=== PATIENT | male | born 1960 | race Hispanic/Latino ===

== ENCOUNTER 2018-06-10 23:01 | Observation (INO) | payer MEDICARE, OTHER ==
[~2018-06-10] VITALS: Ht 172.7 cm; Wt 119.1 kg
[2018-06-10 23:20] LABS: HEMATOCRIT 37.1 % (42-54); LYMPHOCYTES % (AUTO) 8.4 % (21.0-51.0); MEAN CORPUSCULAR HEMOGLOBIN 26.6 pg (27.0-33.0); MEAN CORPUSCULAR HGB CONC 32.8 g/dL (32.0-36.0); MONOCYTES % (AUTO) 5.3 % (3.0-13.0); NEUTROPHILS % (AUTO) 78.3 % (40.0-77.0); PLATELET COUNT (AUTO) 237 K/uL (130-400); RED BLOOD CELL COUNT(AUTO) 4.58 MIL/uL (4.50-6.20); RED CELL DISTRIBUTION WIDTH 16.4 % (11.0-15.5); WHITE BLOOD COUNT (AUTO) 8.8 K/uL (4.8-10.8)
[2018-06-10 23:32] LABS: CREATININE 4.8 mg/dL (0.5-1.5); POTASSIUM 4.8 mmol/L (3.5-5.1)
[2018-06-10 23:36] LABS: ALBUMIN 3.1 g/dL (3.5-5.0); BILIRUBIN,TOTAL 0.2 mg/dL (0.2-1.0); TOTAL PROTEIN, SERUM 7.6 g/dL (6.0-8.3)
[2018-06-11] MEDS ORDERED: ONDANSETRON HCL 4 MG/2 ML VIAL ONE (00:18)
[2018-06-11] MEDS ORDERED: NITROGLYCERIN 0.4 MG SL TAB SL ONE (00:18)
[2018-06-11] MEDS ORDERED: ASPIRIN 325 MG TABLET ONE (00:18)
[2018-06-11] MEDS ORDERED: MORPHINE SULFATE 4 MG/1ML SYG ONE (00:19)
[2018-06-11] MEDS ORDERED: MORPHINE SULFATE 4 MG/1ML SYG IV PRN (02:00)
[2018-06-11] MEDS ORDERED: ACETAMINOPHEN 325 MG TAB PO PRN (02:00)
[2018-06-11] MEDS ORDERED: ONDANSETRON HCL 4 MG/2 ML VIAL IV PRN (02:00)
[2018-06-11 03:00] VITALS: BP 166/93
[2018-06-11] MEDS ORDERED: ATOR10TA69 PO (04:51)
[2018-06-11] MEDS ORDERED: MONT10TA24 PO (04:51)
[2018-06-11] MEDS ORDERED: TRAM50TA4 PO (04:51)
[2018-06-11] MEDS ORDERED: NITR0.4T50 SL (04:51)
[2018-06-11] MEDS ORDERED: GLIM4TAB3 PO (04:51)
[2018-06-11] MEDS ORDERED: METO-391 PO (04:51)
[2018-06-11] MEDS ORDERED: LEVO150T11 PO (04:51)
[2018-06-11] MEDS ORDERED: FURO40TA5 PO (04:51)
[2018-06-11] MEDS ORDERED: BENZ-51 PO (04:51)
[2018-06-11] MEDS ORDERED: ISOS60TA4 PO (04:51)
[2018-06-11] MEDS ORDERED: CYCL5TAB PO (04:51)
[2018-06-11] MEDS ORDERED: CLOP75TA32 PO (04:51)
[2018-06-11] MEDS ORDERED: SENN1TAB6 PO (04:53)
[2018-06-11 07:00] VITALS: BP 127/73
[2018-06-11] MEDS ORDERED: INSULIN HUMULIN R 100 UNIT/ML 3ML SQ SCH (07:30)
[2018-06-11] MEDS ORDERED: NITROGLYCERIN 0.2 MG/HR PATCH TD SCH (09:00)
[2018-06-11] MEDS ORDERED: FUROSEMIDE 10 MG/ML 2ML VIAL IV SCH (09:00)
[2018-06-11] MEDS ORDERED: FAMOTIDINE/PF 20 MG/2 ML VIAL IV SCH (09:00)
[2018-06-11] MEDS ORDERED: ENOXAPARIN SODIUM 40 MG/0.4 ML SYRINGE SQ SCH (09:00)
[2018-06-11] MEDS ORDERED: METOPROLOL TARTRATE 25 MG TAB PO SCH (09:00)
[2018-06-11] MEDS ORDERED: ASPIRIN 325 MG TABLET PO SCH (09:00)
[2018-06-11] MEDS ORDERED: ATORVASTATIN CALCIUM 40 MG TABLET PO SCH (09:00)
[2018-06-11 11:00] VITALS: BP 150/84
[2018-06-11 11:53] VITALS: BP 150/84
== END 2018-06-11 16:10 | disposition home or self-care (01) ==
LOC: EDH 23:01 → EDHIP 06-11 01:40 → 2DH 06-11 02:54
PROVIDERS: ADMIT Internal Medicine; ATTEND Internal Medicine
DX: I25.110 Atherosclerotic heart disease of native coronary artery with unstable angina pectoris (principal); E11.65 Type 2 diabetes mellitus with hyperglycemia; E11.22 Type 2 diabetes mellitus with diabetic chronic kidney disease; I12.9 Hypertensive chronic kidney disease with stage 1 through stage 4 chronic kidney disease, or unspecified chronic kidney disease; N18.9 Chronic kidney disease, unspecified; C18.9 Malignant neoplasm of colon, unspecified; E03.9 Hypothyroidism, unspecified; E66.9 Obesity, unspecified; E78.5 Hyperlipidemia, unspecified; J45.909 Unspecified asthma, uncomplicated; I45.4 Nonspecific intraventricular block; Z85.038 Personal history of other malignant neoplasm of large intestine; Z92.21 Personal history of antineoplastic chemotherapy; Z95.1 Presence of aortocoronary bypass graft; Z95.5 Presence of coronary angioplasty implant and graft; Z79.4 Long term (current) use of insulin
CPT/HCPCS: 36415; 71045; 80053; 82948 ×4; 84484 ×3; 85025; 93005 ×2; 93306; 96372; 96374; 96375; 99291; G0378 ×14; J1650; J1940; J2270; J2405; J3490

== ENCOUNTER 2018-10-22 05:45 | Day surgery (SDC) | payer MEDICARE ==
[2018-10-18 12:30] VITALS: BP 144/79
[2018-10-18 12:46] LABS: BASOPHILS % (AUTO) 1.3 % (0.0-5.0); EOSINOPHILS % (AUTO) 4.2 % (0.0-8.0); HEMATOCRIT 35.6 % (42-54); LYMPHOCYTES % (AUTO) 6.8 % (21.0-51.0); MEAN CORPUSCULAR HEMOGLOBIN 25.2 pg (27.0-33.0); MEAN CORPUSCULAR HGB CONC 31.9 g/dL (32.0-36.0); MEAN CORPUSCULAR VOLUME 78.9 fL (79-99); MONOCYTES % (AUTO) 6.5 % (3.0-13.0); NEUTROPHILS % (AUTO) 81.2 % (40.0-77.0); PLATELET COUNT (AUTO) 294 K/uL (130-400); RED BLOOD CELL COUNT(AUTO) 4.52 MIL/uL (4.50-6.20); RED CELL DISTRIBUTION WIDTH 16.3 % (11.0-15.5); WHITE BLOOD COUNT (AUTO) 8.6 K/uL (4.8-10.8)
[2018-10-18 12:51] LABS: APPEARANCE,URINE Clear (CLEAR); BILIRUBIN,URINE Negative (NEGATIVE); COLOR,URINE Yellow (YELLOW); GLUCOSE, URINE (UA) 250 mg/dL (NEGATIVE); KETONES,URINE Negative (NEGATIVE); LEUKOCYTE ESTERASE ,URINE Negative (NEGATIVE); NITRATE,URINE Negative (NEGATIVE); OCCULT BLOOD,URINE Small (NEGATIVE); PROTEIN,URINE >=1000 mg/dL (NEGATIVE); UROBILINOGEN,URINE 0.2 mg/dL (0.2-1.0)
[2018-10-18 12:52] LABS: CREATININE 5.9 mg/dL (0.5-1.5); POTASSIUM 4.8 mmol/L (3.5-5.1)
[2018-10-18 12:53] LABS: INR 1.09 (0.85-1.15); PARTIAL THROMBOPLASTIN TIME 31.4 SEC (26.3-35.5); PROTHROMBIN TIME 11.4 SEC (9.6-11.6)
[2018-10-18 13:45] LABS: BACTERIA,URINE Few /HPF (None Seen)
[2018-10-18 13:46] LABS: RBC,URINE 0-1 /HPF (0-1); SQUAMOUS EPITHELIAL CELL,UR 0-2 /HPF (0-2); WBC,URINE 0-1 /HPF (0-1)
--- NOTE | 2018-10-21 14:52 | NUR ---
ABNORMAL LABS REPORTED TO DANIELLE GARCIAS, NO NEW ORDERS RECEIVED.
[~2018-10-22] VITALS: Ht 172.7 cm; Wt 102.5 kg
[2018-10-22] VITALS (10 sets, daily range): BP systolic 141–166; BP diastolic 74–94
[~2018-10-22 05:45] MED LIST: ACET1TAB25 PO; ALBUTEROL SULFATE NEB; ASPI-1181 PO; ATOR10TA69 PO; CLOP75TA32 PO; CYCL10TA7 PO; FLUTICASONE PROPION NASAL; FURO40TA5 PO; GENTAMICIN 80 MG/NS 100 ML PB 100 ML IV SCH; INSLAN SQ; ISOS60TA4 PO; LEVO150T11 PO; METO-391 PO; MOME13HF IH; MONT10TA24 PO; NITR0.4T50 SL; OVAR IH; SENN1TAB6 PO; SODIUM CHLORIDE 0.9% 500ML 500 ML IV SCH; TRAM50TA4 PO
[2018-10-22] MEDS ORDERED: SODIUM CHLORIDE 0.9% 1000ML 1,000 ML IV ONE (06:43)
[2018-10-22] MEDS ORDERED: FURO40TA5 PO (07:14)
[2018-10-22] MEDS ORDERED: SODIUM BICARB 50MEQ 50ML VIAL ONE (07:18)
[2018-10-22] MEDS ORDERED: HEPARIN SODIUM 1000UNIT/ML 10ML VIAL ONE (07:18)
[2018-10-22] MEDS ORDERED: IOHEXOL 350 MG/ML 100ML INFUS..BTL IV ONE (07:18)
[2018-10-22] MEDS ORDERED: IOHEXOL-350 50ML VIAL IV ONE (07:18)
[2018-10-22] MEDS ORDERED: NITROGLYCERIN 5 MG/ML 10 ML VIAL IV ONE (07:18)
[2018-10-22] MEDS ORDERED: LIDOCAINE HCL 2% 20ML ONE (07:19)
--- NOTE | 2018-10-22 07:25 | NUR ---
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 PT STABLE.
[2018-10-22] MEDS ORDERED: NITROGLYCERIN 4.1 GM SPRAY TL ONE (07:52)
[2018-10-22] MEDS ORDERED: LABETALOL HCL 5 MG/ML 20ML VIAL IV ONE (08:01)
[2018-10-22] MEDS ORDERED: HYDRALAZINE HCL 20 MG/ML VIAL IV PRN (08:45)
[2018-10-22] MEDS ORDERED: ACETAMINOPHEN-CODEINE 300/30MG TAB PO PRN ×2 (08:45)
--- NOTE | 2018-10-22 10:45 | NUR ---
DIET PT TOLERATING DIET WELL, ASSISTING IN FEEDING PT.
[2018-10-22] MEDS ORDERED: INSULIN HUMULIN R 100 UNIT/ML 3ML SQ SCH (11:30)
--- NOTE | 2018-10-22 12:50 | NUR ---
DISCHARGE PT DISCHARGED VIA WHEELCHAIR WITH . PT STABLE. NO COMPLAINTS MADE. CATH SITE TO RIGHT GROIN REMAINS SOFT, DRESSING DRY AND INTACT, NO OOZING NO HEMATOMA NOTED. DISCHARGE INSTRUCTIONS GIVEN TO AND PT. DEMONSTRATED ON HOW TO MONITOR CATH SITE FOR BLEEDING/HEMATOMA, VERBALIZED UNDERSTANDING.
== END 2018-10-22 12:50 | disposition home or self-care (01) ==
LOC: DAH 05:45
PROVIDERS: ATTEND Internal Medicine Cardiovascular Disease
DX: I25.790 Atherosclerosis of other coronary artery bypass graft(s) with unstable angina pectoris (principal); Z95.5 Presence of coronary angioplasty implant and graft; I25.5 Ischemic cardiomyopathy; I21.3 ST elevation (STEMI) myocardial infarction of unspecified site; Z98.890 Other specified postprocedural states; Z85.028 Personal history of other malignant neoplasm of stomach; D64.9 Anemia, unspecified; J45.909 Unspecified asthma, uncomplicated; I50.42 Chronic combined systolic (congestive) and diastolic (congestive) heart failure; N18.9 Chronic kidney disease, unspecified
CPT/HCPCS: 36415; 71045; 80048; 81001; 82948 ×2; 85025; 85610; 85730; 93005; 93459; C1760; C1769; C1894; J1580; J1644; J1815; J3490 ×4; J7030; Q9965; Q9967 ×2

== ENCOUNTER 2018-11-24 10:32 | Inpatient (IN) | payer MEDICARE | END 2018-11-30 18:55 | disposition home or self-care (01) | LOC: 2DH 10:32 | PROC: 05HM33Z Insertion of Infusion Device into Right Internal Jugular Vein, Percutaneous Approach (ICD-10-PCS; principal; ~2018-11-24) | PROC: B5131ZA Fluoroscopy of Right Jugular Veins using Low Osmolar Contrast, Guidance (ICD-10-PCS; ~2018-11-24) | DX: N18.6 End stage renal disease (principal); I21.4 Non-ST elevation (NSTEMI) myocardial infarction; I12.0 Hypertensive chronic kidney disease with stage 5 chronic kidney disease or end stage renal disease; E11.21 Type 2 diabetes mellitus with diabetic nephropathy; E11.22 Type 2 diabetes mellitus with diabetic chronic kidney disease; E11.51 Type 2 diabetes mellitus with diabetic peripheral angiopathy without gangrene; I25.5 Ischemic cardiomyopathy; M10.9 Gout, unspecified ==

== ENCOUNTER 2019-01-06 19:37 | Inpatient (IN) | payer MEDICARE | END 2019-01-10 17:15 | disposition home or self-care (01) | LOC: EDH 19:37 → 3DH 01-07 11:17 → EDHIP 22:50 | DX: A41.9 Sepsis, unspecified organism (principal); N18.6 End stage renal disease; L03.90 Cellulitis, unspecified; R50.9 Fever, unspecified; Z99.2 Dependence on renal dialysis; E11.22 Type 2 diabetes mellitus with diabetic chronic kidney disease; D64.9 Anemia, unspecified ==

== ENCOUNTER 2019-07-29 08:45 | Day surgery (SDC) | payer MEDICARE ==
[2019-07-24 12:14] LABS: BASOPHILS % (AUTO) 1.3 % (0.0-5.0); EOSINOPHILS % (AUTO) 8.1 % (0.0-8.0); HEMATOCRIT 39.3 % (42-54); LYMPHOCYTES % (AUTO) 13.3 % (21.0-51.0); MEAN CORPUSCULAR HEMOGLOBIN 28.3 pg (27.0-33.0); MEAN CORPUSCULAR VOLUME 91.2 fL (79-99); MONOCYTES % (AUTO) 7.2 % (3.0-13.0); NEUTROPHILS % (AUTO) 69.7 % (40.0-77.0); PLATELET COUNT (AUTO) 176 K/uL (130-400); RED BLOOD CELL COUNT(AUTO) 4.31 MIL/uL (4.50-6.20); RED CELL DISTRIBUTION WIDTH 16.2 % (11.0-15.5); WHITE BLOOD COUNT (AUTO) 5.6 K/uL (4.8-10.8)
[2019-07-24 12:21] LABS: APPEARANCE,URINE Cloudy (CLEAR); BILIRUBIN,URINE Negative (NEGATIVE); COLOR,URINE Dark Yellow (YELLOW); GLUCOSE, URINE (UA) Negative (NEGATIVE); KETONES,URINE Trace mg/dL (NEGATIVE); LEUKOCYTE ESTERASE ,URINE Small (NEGATIVE); NITRATE,URINE Negative (NEGATIVE); OCCULT BLOOD,URINE Trace (NEGATIVE); PROTEIN,URINE 300 mg/dL (NEGATIVE)
[2019-07-24 12:29] LABS: CREATININE 7.1 mg/dL (0.5-1.5)
[2019-07-24 12:30] VITALS: BP 136/63
[2019-07-24 12:30] LABS: AMORPHOUS SEDIMENT,UR Few /LPF (None Seen); BACTERIA,URINE Few /HPF (None Seen); RBC,URINE 0-1 /HPF (0-1); SQUAMOUS EPITHELIAL CELL,UR Rare /HPF (0-2)
[2019-07-24 12:32] LABS: INR 0.99 (0.85-1.15); PARTIAL THROMBOPLASTIN TIME 29.1 SEC (26.3-35.5); PROTHROMBIN TIME 10.4 SEC (9.6-11.6)
[2019-07-29] VITALS (11 sets, daily range): BP systolic 108–152; BP diastolic 61–72
[~2019-07-29] VITALS: Ht 172.7 cm; Wt 100.7 kg
[~2019-07-29 08:45] MED LIST changes: +ACET1TAB12 PO; -ACET1TAB25 PO; +AEC81 PO; +ALBUTEROL 0.083% NEB; -ALBUTEROL SULFATE NEB; -ASPI-1181 PO; -ATOR10TA69 PO; +ATOR40TA71 PO; +BUDE10.2 IH; +CALC667T8 PO; +CYAN250 SL; +CYCL10 PO; -CYCL10TA7 PO; -FLUTICASONE PROPION NASAL; +GABA-531 PO; -GENTAMICIN 80 MG/NS 100 ML PB 100 ML IV SCH; +GLIM4TAB36 PO; +HC2530O TP; +KELP PO; -METO-391 PO; -MOME13HF IH; -MONT10TA24 PO; +MONT10TA26 PO; +OMEG-148 PO; +ONDA-104 PO; -OVAR IH; +PLEC3TAB PO; +SALBUTAMOL; -SENN1TAB6 PO; +TRIA15CR48 TP
[2019-07-29] MEDS ORDERED: DEXTROSE 50%-WATER 50 ML DISP.SYRIN IV ONE ×2 (10:49→13:23)
[2019-07-29] MEDS ORDERED: IOHEXOL-350 50ML VIAL IV ONE (13:13)
[2019-07-29] MEDS ORDERED: IOHEXOL 350 MG/ML 100ML INFUS..BTL IV ONE (13:13)
[2019-07-29] MEDS ORDERED: MEPERIDINE-PF 25 MG/ML SYG ONE (13:14)
[2019-07-29] MEDS ORDERED: MIDAZOLAM HCL 1 MG/ML 2ML VIAL ONE (13:14)
[2019-07-29] MEDS ORDERED: LIDOCAINE HCL 2% 20ML ONE (13:14)
[2019-07-29] MEDS ORDERED: SODIUM BICARB 50MEQ 50ML VIAL ONE (13:20)
[2019-07-29] MEDS ORDERED: NITROGLYCERIN 1 MG/VIAL VIAL IV ONE (13:20)
[2019-07-29] MEDS ORDERED: HEPARIN SODIUM 1000UNIT/ML 10ML VIAL ONE (13:20)
--- NOTE | 2019-07-29 13:20 | NUR ---
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 Pt's blood sugar checked prior to taking pt to cheesemaking laborer, noted to be 47. Pt given remainder of 25 mls (12.5 grams) of 50% Dextrose. labor gang supervisor stated they would recheck the pt's blood sugar in cheesemaking laborer. Report given, care rendered over.
[2019-07-29] MEDS ORDERED: GLUCAGON 1MG KIT 1 MG ML IM PRN (14:45)
[2019-07-29] MEDS ORDERED: DEXTROSE 50%-WATER 50 ML DISP.SYRIN IV PRN (14:45)
[2019-07-29] MEDS ORDERED: INSULIN HUMULIN R 100 UNIT/ML 3ML SQ SCH (16:30)
--- NOTE | 2019-07-29 19:10 | NUR ---
Pt discharged home, tolerating solids/fluids well, ambulating well, voided just prior to discharge. Pt denies any severe nausea, dizziness, or pain. Dressing to right groin remains dry, clean and intact, site remains soft and non-tender. Pt and spouse intructed in routine and emergency care of cath site. Pt and spouse report no further questions at this time.
[2019-07-29] MEDS ORDERED: SODIUM CHLORIDE 0.9% 1000ML 1,000 ML IV ONE (19:27)
== END 2019-07-29 19:10 | disposition home or self-care (01) ==
LOC: DAH 08:45
PROVIDERS: ATTEND Internal Medicine Cardiovascular Disease
DX: I25.119 Atherosclerotic heart disease of native coronary artery with unspecified angina pectoris (principal); I25.5 Ischemic cardiomyopathy; I44.7 Left bundle-branch block, unspecified; I12.9 Hypertensive chronic kidney disease with stage 1 through stage 4 chronic kidney disease, or unspecified chronic kidney disease; E11.22 Type 2 diabetes mellitus with diabetic chronic kidney disease; N18.9 Chronic kidney disease, unspecified; E78.5 Hyperlipidemia, unspecified; Z95.1 Presence of aortocoronary bypass graft; Z95.5 Presence of coronary angioplasty implant and graft
CPT/HCPCS: 36415; 71045; 80048; 81001; 82948 ×7; 85025; 85610; 85730; 93005; 93459; A4215; A4216; A4221; A4222; A4223 ×3; A4606; A4663; C1760; C1894; J1644; J2175; J2250; J3490 ×3; J7030; J7070 ×2; Q9965; Q9967 ×2; 99156; 99157

== ENCOUNTER 2021-01-05 06:30 | Day surgery (SDC) | payer OTHER ==
[2021-01-05] VITALS (9 sets, daily range): BP systolic 116–134; BP diastolic 45–65
[~2021-01-05] VITALS: Ht 172.7 cm; Wt 99.8 kg
[~2021-01-05 06:30] MED LIST changes: -CYAN250 SL; +CYAN250T3 SL; -ISOS60TA4 PO; +ISOS60TA77 PO; -MONT10TA26 PO; +MONT10TA32 PO; -PLEC3TAB PO; +PLEC3TAB2 PO; -SODIUM CHLORIDE 0.9% 500ML 500 ML IV SCH
[2021-01-05 08:58] LABS: INR 1.05 (0.85-1.15); PROTHROMBIN TIME 11.4 SEC (9.6-11.6)
[2021-01-05 09:00] LABS: PARTIAL THROMBOPLASTIN TIME 32.9 SEC (26.3-35.5)
[2021-01-05] MEDS ORDERED: 0.9%NACL 1000ML 1,000 ML IV ONE (09:19)
[2021-01-05] MEDS ORDERED: CLOPIDOGREL 75MG TAB ONE (10:14)
[2021-01-05] MEDS ORDERED: ASPIRIN 81MG CHEW TAB ONE (10:14)
[2021-01-05] MEDS ORDERED: CARV3.1262 PO (10:22)
[2021-01-05] MEDS ORDERED: heparin IV (10:22)
[2021-01-05] MEDS ORDERED: FLUT1AER IH (10:22)
[2021-01-05] MEDS ORDERED: PANT40TA54 PO (10:22)
[2021-01-05] MEDS ORDERED: VANC1.2526 IV (10:22)
[2021-01-05] MEDS ORDERED: lispro SQ (10:22)
[2021-01-05] MEDS ORDERED: NITROGLYCERIN 2 MG VIAL IV ONE (10:23)
[2021-01-05] MEDS ORDERED: BIVALIRUDIN 250 MG/VIAL IV ONE (10:23)
[2021-01-05] MEDS ORDERED: IOHEXOL-350 50ML VIAL IV ONE (10:23)
[2021-01-05] MEDS ORDERED: IOHEXOL 350 MG/ML 100ML INFUS..BTL IV ONE (10:23)
[2021-01-05] MEDS ORDERED: MIDAZOLAM HCL 1 MG/ML 2ML VIAL ONE (10:23)
[2021-01-05] MEDS ORDERED: FENTANYL CITRATE PF 50 MCG/1 ML 2ML VIAL ONE (10:24)
[2021-01-05] MEDS ORDERED: LIDOCAINE HCL 400MG/20ML VIAL ONE (10:24)
[2021-01-05] MEDS ORDERED: ISOSORBIDE MONO 60MG SR TAB PO SCH (10:30)
[2021-01-05] MEDS ORDERED: CLOPIDOGREL 300MG TAB PO SCH (10:30)
[2021-01-05] MEDS ORDERED: CARVEDILOL 3.125 MG TABLET PO SCH (10:30)
[2021-01-05] MEDS ORDERED: ASPIRIN 81MG CHEW TAB PO SCH (10:30)
[2021-01-05] MEDS ORDERED: CLOPIDOGREL 75MG TAB PO SCH ×2 (11:00)
[2021-01-05] MEDS ORDERED: IOHEXOL-350 75 ML VIAL IV ONE (11:26)
[2021-01-05] MEDS ORDERED: LABETALOL 20MG SYG IV ONE (11:36)
[2021-01-05] MEDS ORDERED: NITROGLYCERIN 0.4 MG SL TAB SL PRN (12:00)
[2021-01-05] MEDS ORDERED: GLUCAGON 1MG KIT 1 MG ML IM PRN (12:00)
[2021-01-05] MEDS ORDERED: DEXTROSE 50%-WATER 50 ML DISP.SYRIN IV PRN (12:00)
[2021-01-05] MEDS ORDERED: INSULIN HUMULIN R 100 UNIT/ML 3ML SQ SCH (16:30)
== END 2021-01-05 15:30 | disposition home or self-care (01) ==
LOC: UNDOADMIN 06:30 → DAHIP 06:30 → DAH 06:30 → EDSTATUS 14:27 → DAH 15:30
PROVIDERS: ATTEND Internal Medicine Cardiovascular Disease
DX: I21.4 Non-ST elevation (NSTEMI) myocardial infarction (principal); I25.110 Atherosclerotic heart disease of native coronary artery with unstable angina pectoris; I34.0 Nonrheumatic mitral (valve) insufficiency; I44.7 Left bundle-branch block, unspecified; N18.6 End stage renal disease; Z79.899 Other long term (current) drug therapy; Z98.890 Other specified postprocedural states; Z95.5 Presence of coronary angioplasty implant and graft
CPT/HCPCS: 36415; 82948; 85610; 85730; 87635; 93005; 93459; A4216; A4222; A4223 ×2; A4606; A4663; C1760; C1769; C1894 ×2; J1644; J2250; J3010; J3490 ×2; J7030; Q9965; Q9967 ×2; 99156; 99157; J0583

== ENCOUNTER 2021-09-22 13:20 | Observation (INO) | payer OTHER ==
[~2021-09-22] VITALS: Ht 172.7 cm; Wt 91.6 kg
[~2021-09-22 13:20] MED LIST changes: -ACET1TAB12 PO; -ALBUTEROL 0.083% NEB; -BUDE10.2 IH; +CARV3.1262 PO; -CYAN250T3 SL; -CYCL10 PO; +FLUT1AER IH; -GLIM4TAB36 PO; -HC2530O TP; -INSLAN SQ; -KELP PO; +MONT-39 PO; -MONT10TA32 PO; -OMEG-148 PO; -ONDA-104 PO; +PANT40TA54 PO; -PLEC3TAB2 PO; -SALBUTAMOL; -TRAM50TA4 PO; -TRIA15CR48 TP; +VANC1.2526 IV; +heparin IV; +lispro SQ
[2021-09-22 13:57] LABS: BASOPHILS % (AUTO) 1.1 % (0.0-5.0); EOSINOPHILS % (AUTO) 5.2 % (0.0-8.0); LYMPHOCYTES % (AUTO) 11.2 % (21.0-51.0); MEAN CORPUSCULAR HEMOGLOBIN 29.9 pg (27.0-33.0); MEAN CORPUSCULAR HGB CONC 31.8 g/dL (32.0-36.0); MONOCYTES % (AUTO) 7.5 % (3.0-13.0); NEUTROPHILS % (AUTO) 74.7 % (40.0-77.0); PLATELET COUNT (AUTO) 176 K/uL (130-400); RED BLOOD CELL COUNT(AUTO) 3.51 MIL/uL (4.50-6.20); RED CELL DISTRIBUTION WIDTH 14.5 % (11.0-15.5); WHITE BLOOD COUNT (AUTO) 6.1 K/uL (4.8-10.8)
[2021-09-22 14:05] LABS: CREATININE 6.6 mg/dL (0.5-1.5); POTASSIUM 3.9 mmol/L (3.5-5.1)
[2021-09-22 14:10] LABS: ALBUMIN 3.7 g/dL (3.5-5.0); BILIRUBIN,TOTAL 0.4 mg/dL (0.2-1.0); TOTAL PROTEIN, SERUM 7.9 g/dL (6.0-8.3)
[2021-09-22] MEDS ORDERED: ASPIRIN 81MG CHEW TAB PO ONE (15:30)
[2021-09-22 15:57] LABS: HEMOGLOBIN A1C 5.9 % (4.0-6.0)
[2021-09-22] MEDS: INSULIN HUMULIN R 100 UNIT/ML 3ML SQ SCH ×2 (16:30→20:22)
[2021-09-22 17:14] LABS: CHOLESTEROL 138 mg/dL (<200); HDL CHOLESTEROL 59 mg/dL (29-71); LDL DIRECT 60 mg/dL (0-99); TRIGLYCERIDES 113 mg/dL (30-200)
[2021-09-22] MEDS ORDERED: CLOPIDOGREL 75MG TAB PO ONE (18:00)
[2021-09-22] MEDS ORDERED: TRELEGY IH (18:27)
[2021-09-22] MEDS ORDERED: TRIAMCINOLONE 0.1% TP (18:27)
[2021-09-22] MEDS ORDERED: LISI2.5T13 PO (18:27)
[2021-09-22] MEDS ORDERED: L.AC1CAP6 PO (18:27)
[2021-09-22] MEDS ORDERED: SEMA7TAB2 PO (18:27)
[2021-09-22] MEDS ORDERED: INSLAN SQ (18:27)
[2021-09-22] MEDS ORDERED: OMEG-148 PO (18:27)
[2021-09-22] MEDS ORDERED: ONDA4TAB10 PO (18:27)
[2021-09-22] MEDS ORDERED: CYAN-35 PO (18:27)
[2021-09-22] MEDS ORDERED: CYCL-309 PO (18:27)
[2021-09-22] MEDS ORDERED: HC2530O TP (18:27)
[2021-09-22] MEDS: CALCIUM AC 667MG CAP PO SCH (20:25)
[2021-09-22] MEDS: CARVEDILOL 3.125 MG TABLET PO SCH (20:25)
[2021-09-22] MEDS ORDERED: ATORVASTATIN 40 MG TABLET PO SCH (21:00)
[2021-09-22 22:40] VITALS: BP 125/66
[2021-09-23 04:12] VITALS: BP 129/64
[2021-09-23] MEDS: INSULIN HUMULIN R 100 UNIT/ML 3ML SQ SCH ×2 (06:46→11:30)
[2021-09-23] MEDS: LEVOTHYROXINE 150 MCG TABLET PO SCH ×2 (06:46→08:10)
[2021-09-23 08:01] LABS: BASOPHILS % (AUTO) 1.6 % (0.0-5.0); EOSINOPHILS % (AUTO) 7.5 % (0.0-8.0); HEMATOCRIT 29.9 % (42-54); MEAN CORPUSCULAR HEMOGLOBIN 29.1 pg (27.0-33.0); MEAN CORPUSCULAR HGB CONC 31.8 g/dL (32.0-36.0); MEAN CORPUSCULAR VOLUME 91.4 fL (79-99); MONOCYTES % (AUTO) 8.7 % (3.0-13.0); PLATELET COUNT (AUTO) 161 K/uL (130-400); RED BLOOD CELL COUNT(AUTO) 3.27 MIL/uL (4.50-6.20); RED CELL DISTRIBUTION WIDTH 14.2 % (11.0-15.5); WHITE BLOOD COUNT (AUTO) 5.1 K/uL (4.8-10.8)
[2021-09-23] MEDS: CARVEDILOL 3.125 MG TABLET PO SCH (08:10)
[2021-09-23 08:11] LABS: CREATININE 7.6 mg/dL (0.5-1.5); POTASSIUM 4.4 mmol/L (3.5-5.1)
[2021-09-23] MEDS: CALCIUM AC 667MG CAP PO SCH ×2 (08:11→11:53)
[2021-09-23 08:17] VITALS: BP 143/69
[2021-09-23] MEDS ORDERED: ASPIRIN 81MG CHEW TAB PO SCH (09:00)
[2021-09-23] MEDS ORDERED: MONTELUKAST SODIUM 10 MG TAB PO SCH (09:00)
[2021-09-23] MEDS ORDERED: CYANOCOBALAMIN (VITAMIN B-12) 1,000 MCG TABLET PO SCH (09:00)
[2021-09-23] MEDS ORDERED: LISINOPRIL 2.5 MG TABLET PO SCH (09:00)
[2021-09-23 11:33] VITALS: BP 135/74
[2021-09-23] MEDS ORDERED: RANOLAZINE 500 MG TAB.SR.12H PO SCH (12:00)
== END 2021-09-23 13:15 | disposition home or self-care (01) ==
LOC: EDH 13:20 → EDHIP 15:23 → INTOOBSV 15:23 → 4BH 22:28
PROVIDERS: ADMIT Internal Medicine; ATTEND Internal Medicine
DX: R07.89 Other chest pain (principal); I25.10 Atherosclerotic heart disease of native coronary artery without angina pectoris; I12.0 Hypertensive chronic kidney disease with stage 5 chronic kidney disease or end stage renal disease; N18.6 End stage renal disease; D63.1 Anemia in chronic kidney disease; Z99.2 Dependence on renal dialysis; E11.22 Type 2 diabetes mellitus with diabetic chronic kidney disease; E78.00 Pure hypercholesterolemia, unspecified; E03.9 Hypothyroidism, unspecified; Z85.038 Personal history of other malignant neoplasm of large intestine; Z79.82 Long term (current) use of aspirin; Z79.899 Other long term (current) drug therapy; Z92.21 Personal history of antineoplastic chemotherapy; Z95.1 Presence of aortocoronary bypass graft; Z95.5 Presence of coronary angioplasty implant and graft
CPT/HCPCS: 36415 ×2; 71045; 80048; 80053; 80061; 82948 ×3; 83036; 84443; 84484 ×3; 85025 ×2; 93005; 99285; G0378 ×2; 90935

== ENCOUNTER → 2021-11-04 | Day surgery (SDC) | payer OTHER ==
[2021-11-02 12:59] LABS: BASOPHILS % (AUTO) 0.8 % (0.0-5.0); EOSINOPHILS % (AUTO) 3.5 % (0.0-8.0); HEMATOCRIT 29.7 % (42-54); LYMPHOCYTES % (AUTO) 7.8 % (21.0-51.0); MEAN CORPUSCULAR HEMOGLOBIN 30.8 pg (27.0-33.0); MEAN CORPUSCULAR HGB CONC 32.3 g/dL (32.0-36.0); MEAN CORPUSCULAR VOLUME 95.2 fL (79-99); MONOCYTES % (AUTO) 9.5 % (3.0-13.0); NEUTROPHILS % (AUTO) 77.8 % (40.0-77.0); PLATELET COUNT (AUTO) 206 K/uL (130-400); RED BLOOD CELL COUNT(AUTO) 3.12 MIL/uL (4.50-6.20); RED CELL DISTRIBUTION WIDTH 13.4 % (11.0-15.5); WHITE BLOOD COUNT (AUTO) 6.6 K/uL (4.8-10.8)
[2021-11-02 13:11] LABS: CREATININE 4.6 mg/dL (0.5-1.5); POTASSIUM 4.8 mmol/L (3.5-5.1)
[2021-11-02 13:18] LABS: PROTHROMBIN TIME 10.9 SEC (9.6-11.6)
[2021-11-02 13:19] LABS: PARTIAL THROMBOPLASTIN TIME 29.2 SEC (26.3-35.5)
[~2021-11-04] VITALS: Ht 172.7 cm; Wt 88.2 kg
[~2021-11-04] MED LIST changes: +0.9% NACL 500ML IV.SOLN 500 ML IV SCH; -AEC81 PO; +ALBU1.252 IH; +ALBU8.5H8 IH; +ASCO500T20 PO; +ASPI-1521 PO; +CYAN-35 PO; +CYCL-309 PO; +EPHEDRINE SULFATE 50 MG/ML AMPULE ONE; +FENTANYL CITRATE PF 50 MCG/1 ML 2ML VIAL ONE; -FLUT1AER IH; +FLUT1BLS3 IH; -FURO40TA5 PO; -GABA-531 PO; +INSLAN SQ; -ISOS60TA77 PO; +L.AC1CAP6 PO; -LEVO150T11 PO; +LEVO175C2 PO; +LIDOCAINE PF 100MG/5ML (2%) SYRINGE 5ML ONE; +LISI2.5T13 PO; +MIDAZOLAM HCL 1 MG/ML 2ML VIAL ONE; +OMEG-148 PO; +ONDA4TAB10 PO; -PANT40TA54 PO; +POLY17PO4 PO; +PROPOFOL 10 MG/ML 20ML VIAL IV ONE; +RANO10003 PO; +ROCURONIUM 10MG/1ML SYR 10 MG/ML ML ONE; +SEMA7TAB2 PO; +SUCCINYLCHOLINE 200MG/10ML SYR ONE; -VANC1.2526 IV; +apap/codeine PO; -heparin IV; -lispro SQ
[2021-11-04 09:00] VITALS: BP 133/67
== END | disposition home or self-care (01) ==
LOC: DAH 08:22
PROVIDERS: ATTEND Internal Medicine Cardiovascular Disease
DX: I51.7 Cardiomegaly (principal); I44.7 Left bundle-branch block, unspecified; Z79.01 Long term (current) use of anticoagulants; Z53.8 Procedure and treatment not carried out for other reasons
CPT/HCPCS: 36415; 80048; 82948; 85025; 85610; 85730; 93005; A4215 ×2; A4216; A4221; A4222; A4223 ×3; A4606; A4663; J2001; J2704; J0330; J2250; J3010; J3490

== ENCOUNTER → 2022-04-04 | Outpatient (CLI) | payer OTHER ==
[~2022-04-04] MED LIST changes: -0.9% NACL 500ML IV.SOLN 500 ML IV SCH; -EPHEDRINE SULFATE 50 MG/ML AMPULE ONE; -FENTANYL CITRATE PF 50 MCG/1 ML 2ML VIAL ONE; +IOHEXOL 350 MG/ML 100ML INFUS..BTL IV ONE; -LIDOCAINE PF 100MG/5ML (2%) SYRINGE 5ML ONE; -MIDAZOLAM HCL 1 MG/ML 2ML VIAL ONE; -PROPOFOL 10 MG/ML 20ML VIAL IV ONE; -ROCURONIUM 10MG/1ML SYR 10 MG/ML ML ONE; -SUCCINYLCHOLINE 200MG/10ML SYR ONE
== END | disposition home or self-care (01) ==
LOC: RAH 09:32
PROVIDERS: ATTEND Internal Medicine Cardiovascular Disease
DX: J90 Pleural effusion, not elsewhere classified (principal); I51.7 Cardiomegaly; I73.9 Peripheral vascular disease, unspecified; J47.9 Bronchiectasis, uncomplicated
CPT/HCPCS: 71275; Q9967

== ENCOUNTER 2022-06-30 09:10 | Day surgery (SDC) | payer OTHER ==
[2022-06-28 11:44] LABS: BASOPHILS % (AUTO) 1.4 % (0.0-5.0); HEMATOCRIT 38.2 % (42-54); MEAN CORPUSCULAR HEMOGLOBIN 27.6 pg (27.0-33.0); MEAN CORPUSCULAR HGB CONC 30.6 g/dL (32.0-36.0); MEAN CORPUSCULAR VOLUME 90.1 fL (79-99); MONOCYTES % (AUTO) 6.3 % (3.0-13.0); NEUTROPHILS % (AUTO) 79.9 % (40.0-77.0); PLATELET COUNT (AUTO) 153 K/uL (130-400); RED BLOOD CELL COUNT(AUTO) 4.24 MIL/uL (4.50-6.20); RED CELL DISTRIBUTION WIDTH 15.4 % (11.0-15.5)
[2022-06-28 11:58] LABS: CREATININE 5.2 mg/dL (0.5-1.5); POTASSIUM 3.9 mmol/L (3.5-5.1)
[2022-06-28 12:01] LABS: INR 1.04 (0.85-1.15); PROTHROMBIN TIME 11.3 SEC (9.6-11.6)
[2022-06-28 12:02] LABS: PARTIAL THROMBOPLASTIN TIME 30.8 SEC (26.3-35.5)
[2022-06-29 10:45] VITALS: BP 135/63
[~2022-06-30] VITALS: Ht 172.7 cm; Wt 94.8 kg
[2022-06-30] VITALS (10 sets, daily range): BP systolic 120–142; BP diastolic 45–70
[~2022-06-30 09:10] MED LIST changes: -ASCO500T20 PO; -CARV3.1262 PO; -CYAN-35 PO; -CYCL-309 PO; -IOHEXOL 350 MG/ML 100ML INFUS..BTL IV ONE; -L.AC1CAP6 PO; -LISI2.5T13 PO; -POLY17PO4 PO; -apap/codeine PO
[2022-06-30] MEDS ORDERED: MEPERIDINE-PF 25 MG/ML SYG ONE ×4 (12:47→13:57)
[2022-06-30] MEDS ORDERED: MIDAZOLAM HCL 1 MG/ML 2ML VIAL ONE ×4 (12:48→13:57)
[2022-06-30] MEDS ORDERED: IOHEXOL-350 50ML VIAL IV ONE (12:52)
[2022-06-30] MEDS ORDERED: CEFAZOLIN SODIUM 1 GM VIAL ONE (12:52)
[2022-06-30] MEDS ORDERED: LIDOCAINE HCL 1% MDV 50ML VIAL ONE (12:52)
[2022-06-30] MEDS ORDERED: BUPIVACAINE/PF 0.25% 30ML VIAL IJ ONE (12:52)
[2022-06-30] MEDS ORDERED: THROMBIN-JMI 5000 UNIT/VIAL TP ONE (14:04)
[2022-06-30] MEDS ORDERED: BACITRACIN 1 EACH PACKET TP ONE (14:37)
[2022-06-30] MEDS ORDERED: DEXTROSE 50%-WATER 50 ML DISP.SYRIN IV PRN (15:00)
[2022-06-30] MEDS ORDERED: GLUCAGON 1MG KIT 1 MG ML IM PRN (15:00)
[2022-06-30] MEDS ORDERED: ONDANSETRON 4MG INJ IV PRN (15:00)
[2022-06-30] MEDS ORDERED: ACETAMINOPHEN 325 MG TAB PO PRN ×2 (15:00)
[2022-06-30] MEDS ORDERED: INSULIN HUMULIN R 100 UNIT/ML 3ML SQ SCH (16:30)
[2022-06-30] MEDS ORDERED: CEFAZOLIN SODIUM 1 GM VIAL IVP SCH (18:30)
== END 2022-06-30 19:45 | disposition home or self-care (01) ==
LOC: DAH 09:10
PROVIDERS: ATTEND Internal Medicine Cardiovascular Disease
DX: I25.5 Ischemic cardiomyopathy (principal); I44.7 Left bundle-branch block, unspecified; E11.22 Type 2 diabetes mellitus with diabetic chronic kidney disease; I13.2 Hypertensive heart and chronic kidney disease with heart failure and with stage 5 chronic kidney disease, or end stage renal disease; N18.6 End stage renal disease; I50.21 Acute systolic (congestive) heart failure; E78.5 Hyperlipidemia, unspecified; J45.909 Unspecified asthma, uncomplicated; Z79.01 Long term (current) use of anticoagulants; Z79.899 Other long term (current) drug therapy; Z79.4 Long term (current) use of insulin; Z79.82 Long term (current) use of aspirin; Z98.890 Other specified postprocedural states; Z79.890 Hormone replacement therapy; Z99.2 Dependence on renal dialysis; Z82.49 Family history of ischemic heart disease and other diseases of the circulatory system
CPT/HCPCS: 80048; 85025; 85610; 85730; 36415; 93005; 33249; 33225; 82948 ×2; 71046; C1769 ×2; C1894 ×2; J0690; J3490 ×3; J2250 ×4; J2175 ×4; Q9967; A4215; A4222; A4221; A4663; A4216; A4606; A4223 ×3; 99156; 99157